=== PATIENT | female | born 1955 | race Caucasian/White ===

== ENCOUNTER 2025-08-07 17:56 | Emergency (ER) | payer OTHER, MEDICARE, BC, SELFPAY ==
--- NOTE | ~2025-08-07 | CT_ITS ---
EXAMINATION: CT brain wo con DATE: 08/07/2025 18:51 INDICATION: Pulsating headache TECHNIQUE: Computed tomography (CT) of the head was performed without intravenous contrast. Sagittal and coronal reconstructions were performed. The mA was adjusted according to patient size. Iterative reconstruction technique was employed. The dose-length product was 605.33 mGy-cm. COMPARISON: None FINDINGS: No acute intracranial hemorrhage, acute infarction or abnormal extra axial fluid collection. Ventricles are normal and symmetric. No mass/mass effect. Changes of bilateral intraocular lens replacement. The orbits, paranasal sinuses and mastoid air cells are normal. IMPRESSION: 1. No acute intracranial process. Reviewed, dictated and finalized at location A. ENGINEER
[2025-08-07 17:55] VITALS: BP 178/96; PULSE 68; RESP 16; TEMP 36.4; O2SAT 100
--- OUTSIDE RECORDS SUMMARY | 2025-08-07 18:25 | XMS_ITS | Clinical Summary ---
Author Organization 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 Active famotidine (PEPCID) 10 mg tablet Take 10 mg by mouth 2 times daily. Active venlafaxine (EFFEXOR) 75 mg tablet Take 75 mg by mouth 3 times daily. Active Active Problems No known active problems Immunizations Immunization Administration Dates Next Due ([employer])(12 YR UP) COVID-19 VACCINE - EMERGENCY USE AUTHORIZATION, MRNA, [id number](PF) 30 MCG/0.3 ML IM SUSP 12/01/2020,11/03/2020 Social History Tobacco Use Types Packs/Day Years Used Date Smoking Tobacco: Former Cigarettes 0 Q uit: 1985 Smokeless Tobacco: Never Alcohol Use Standard Drinks/Week Comments Not Currently 0 (1 standard drink = 0.6 oz pur e alcohol) Comments No Sex and Gender Information Value Date Recorded Sex Assigned at Not on file Legal Sex Female 11:55 AM CDT Gender Identity Not on file Sexual Orientation Not on file Last Filed Vital Signs Vital Sign Reading Time Taken Comments Blood Pressure 130/81 10/20/2020 3:29 PM 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 Pulse 70 05/23/2017 2:50 PM CDT Temperature 36.8 C (98.2 F) 10/20/2020 3:29 PM 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 Respiratory Rate 20 10/20/2020 3:29 PM 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 Oxygen Saturation 100% 10/20/2020 3:29 PM 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 Inhaled Oxygen Concentration - - Weight 76.2 kg (168 lb) 10/20/2020 3:29 PM 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 Height 160 cm (5' 3) 10/20/2020 3:29 PM 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 Body Mass Index 29.76 10/20/2020 3:29 PM 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 Plan of Treatment Health Maintenance Due Date Last Done Comments BREAST CANCER SCREENING 1995 COLORECTAL SCREENING 11/21/2000 Colorectal Cancer Screening 11/21/2000 FIT-DNA Q 3 years 11/21/2000 FIT/FOBT Q 1 year 11/21/2000 Flex Sig/CT Colonography Q 5 years 11/21/2000 PNEUMOCOCCAL VACCINE 50+ YEA RS (1 of 1 - PCV) 11/21/2005 ZOSTER VACCINE (1 of 2) 11/21/2005 DTAP/TDAP/TD VACCINES (2 - T d or Tdap) 08/02/2020 08/02/2010, 01/20/2003 OSTEOPOROSIS SCREENING 11/21/2020 INFLUENZA VACCINE (#1) 2025 7, 06/07/2016, 07/14/2014, Additional history exists COVID-19 Vaccine (3 - 2024-2 6 season) 2025 12/01/2020, 11/03/2020 RSV VACCINE (60+ or ) (1 - 1-dose 75+ series) 11/21/[address] [place] [address] [address] ad[employer] PPO Member Subscriber Plan / Payer (Ef fective 2020-Present) Name:Margret Millan Relation to Subscriber:Self Name:Margret Millan Payer ID:[id number] (NAIC) Type:3Touch Address: [address] [facility] [id number] [place] [phone] Care Teams Electrical Prospecting Operator Relationship Specialty Start Date End Date Carlos Driscoll MD [address] [place] [address] PCP - General Emergency Medicine 11/12/20
--- OUTSIDE RECORDS SUMMARY | 2025-08-07 18:25 | XMS_ITS | Patient Health Record ---
Author Organization [facility] [employer] [facility] Address [address] [place] [address] [place] [address] Care Team Providers Care Apprentice Technician Name Role Phone David Jones Unavailable [phone] Reason For Referral No Information Plan Of Treatment No Information
--- OUTSIDE RECORDS SUMMARY | 2025-08-07 18:25 | XMS_ITS | Data Portability ---
Author Organization [place] - [facility] ark, [facility] Address [address] [facility] [address] [place] [address] Care Team Providers Care Pairer Substandard Name Role Phone JULIANA PFEIFFER Primary Care Provider [phone] Assessment No assessment recorded. Plan of Treatment Reminders Order Date Submit Date Provider Last Modified By Organization Details Last Modified Time Details Appointments None recorded. Lab None recorded. Referral None recorded. Procedures None recorded. Surgeries total hip arthroplast y (SURG) [email or web address] [facility] ([facility]), [address] [place], [address], 3 09:16:50 Imaging XR, hip, unilateral 2022 [address]23 [email or web address] [facility], [address], [address], 3 10:40:05 XR, hip, unilateral 2022 023 [email or web address] [facility], [address], [address], 3 17:47:02 XR, hip, bilateral 2018 019 [email or web address] Orthopaedic [facility], [address] [address], [place], [address], 9 13:02:08 XR, lumbar spine 2018 [email or web address], [address], [place], [address], 9 13:01:57 XR, foot 2018 [email or web address], [address], [place], [address], 9 13:01:45 Medication Orders None recorded. Patient TargetsNo targets recorded. Patient Instructions Encounter Date Encounter Id Patient Instructions Last Modified By Organization Details Last Modified Time 05/14/2019 [id number] Imagin05-14-19 XR L spine with severe deg spondylosis/scolio sis 05-14-19 XR hudson hips with R hip mod joint space narrowing 05-14-19 XR L foot with no osseous abn other than slight cavus forefoot Lab: Consults Assessment: -Lumbar spondylosis/scolio sis -R hip mild to mod arthritis -R foot 5th MT cuboid chronic strain Plan: -MRI L spine -f/u post MRI -Discussed epidural steroid injections -R foot custom molded arch supports Ortho hx: LBP, lumbar spondylosis/scolio sis R foot pain, 5th MT cuboid chronic strain 05-14-19 Custom arch supports Notes: rajiv East Not available 05/14/2019 15:06:49 05/21/2019 [id number] Imagin05-14-19 XR L spine with severe deg spondylosis/scolio sis 05-14-19 XR hudson hips with R hip mod joint space narrowing 05-14-19 XR L foot with no osseous abn other than slight cavus forefoot 05-20-19 MRI L spine with L34 Disc herniation with extrusion to R lateral recess and L4 nerve impingement, L45 stenosis, diffuse deg spondylosis Lab: Consults Assessment: -Lumbar spondylosis/scolio sis -Lumbar L34 disc extrusion with L4 R sided radiculopathy -L34 and L45 stenosis Plan: -Referral to spine surgeon Dr Damon -f/u prn -Prednisone 10mg po QD for 5 days PMH: Lumbar spondylosis/scolio sis R 5th MT cuboid chronic strain R hip mild arthritis PSH: Notes: 05-14-19 Custom arch supports 05-21-19 Prednisone dose pack rajiv East Not available 05/21/2019 14:40:24 12/05/2022 [id number] Reviewed and discussed x-ray findings of right hip which does reveal severe osteoarthritis noted throughout. She has tried numerous injections as well as physical therapy with no improvement noted in her hip. She reports she is tired and with pain and limitations she would like to have it surgically corrected. We will plan for right total hip replacement at this time. Reviewed and discussed findings with Dr. Rodriguez who agrees with plan. We will plan for right total hip replacement at this time. The patient has been informed of the risks to include infection, bleeding, nerve damage, , need for further surgery, worsening of symptoms, recurrence of problem, hardware failure or migration, or fracture. Alternatives such as no interventions, injections, therapy, bracing, and other surgical options have all been discussed. The patient understands the risks and alternatives, and wishes to proceed with the planned procedure. Will follow up in clinic post operatively. [email or web address] Not available 12/06/2022 17:50:11 01/12/2023 [id number] Margret is doing very well with her right hip. She does have a small fluid collection under it which is somewhat expected. She is very active already. She will do warm compresses on that seroma several times a day see if we get it to dissolve. If she has any redness or drainage she is to call right away. She will also take a baby aspirin twice a day. [email or web address] Not available 01/12/2023 11:45:01 02/02/2023 [id number] Margret is doing very well with her right hip. She is just over a month out and not walking with a limp or any assistive device. The seroma is completely disappeared after she got treatment at a day spa with [facility]. I am very impressed with this. I will see her back in 6 weeks. [email or web address] Not available 02/02/2023 10:41:16 Reason for Referral None Reported. Results Created Date Observation Date Name Description Value Unit Range Abnormal Flag Note LastModifiedBy Organization Detail LastModifiedTime 12/23/19 23 12/22/2022 CBC W DIFF basophil count percentage of leukocytes 0.8 % 0-2 normal Not Available [address] [address] [place], [address], 12/22/2022 12:47:02 12/23/19 23 12/22/2022 CBC W DIFF blood eosinophils count (number/volu me) 0.10 10x3/ uL 1.56-6 .13 low Not Available [address] [address] [place], [address], 12/22/2022 12:47:02 12/23/19 23 12/22/2022 CBC W DIFF automated blood eosinophil count percentage of total leukocytes 3.0 % 0-7 normal Not Available [address] [address] [place], [address], 12/22/2022 12:47:02 12/23/19 23 12/22/2022 CBC W DIFF automated blood hematocrit (volume fraction) 38.9 % 36.0-4 8.0 normal Not Available [address] [address] [place], [address], 12/22/2022 12:47:02 12/23/19 23 12/22/2022 CBC W DIFF whole blood hemoglobin measurement (mass/volume ) 13.1 g/dL 12-16 normal Not Available [address] [address] [place], [address], 12/22/2022 12:47:02 12/23/19 23 12/22/2022 CBC W DIFF automated lymphocyte count percentage of total leukocytes 38.5 % 15-50 normal Not Available [address] [address] [place], [address], 12/22/2022 12:47:02 12/23/19 23 12/22/2022 CBC W DIFF automated erythrocyte mean corpuscular hemoglobin concentratio n (MCHC)elvira 33.7 pg 26.0-3 4.0 normal Not Available [address] [address] [place], [address], 12/22/2022 12:47:02 12/23/19 23 12/22/2022 CBC W DIFF automated erythrocyte mean corpuscular hemoglobin concentratio n (MCHC)elvira 33.8 g/dL 31.0-3 7.0 normal Not Available [facility] [address] [place], [address], 12/22/2022 12:47:02 12/23/19 23 12/22/2022 CBC W DIFF determinatio n of erythrocyte mean corpuscular volume (MCV) 99.7 fL 80.0-1 00.0 normal Not Available [facility] [address] [place], [address], 12/22/2022 12:47:02 12/23/19 23 12/22/2022 CBC W DIFF automated blood monocyte count percentage of total leukocytes 13.1 % 2-11 high Not Available [address] [address] [place], [address], 12/22/2022 12:47:02 12/23/19 23 12/22/2022 CBC W DIFF automated blood platelet mean volume measurement 10.6 fL 7.4-10 .4 high Not Available [address] [address] [place], [address], 12/22/2022 12:47:02 12/23/19 23 12/22/2022 CBC W DIFF blood neutrophils count (number/volu me) 1.50 10x3/ uL 1.56-6 .13 low Not Available [address] [address] [place], [address], 12/22/2022 12:47:02 12/23/19 23 12/22/2022 CBC W DIFF automated blood neutrophil count percentage of total leukocytes 44.6 % 40-80 normal Not Available [address] [address] [place], [address], 12/22/2022 12:47:02 12/23/19 23 12/22/2022 CBC W DIFF blood platelets count (number/volu me) 180 10x3/ uL 130-40 0 normal Not Available [facility] [address] [place], [address], 12/22/2022 12:47:02 12/23/19 23 12/22/2022 CBC W DIFF blood erythrocytes count (number/volu me) 3.90 10x6/ uL 4.00-5 .40 low Not Available [facility] [address] [place], [address], 12/22/2022 12:47:02 12/23/19 23 12/22/2022 CBC W DIFF automated erythrocyte distribution width ratio 13.5 % 11.5-1 4.5 normal Not Available [facility] [address] [place], [address], 12/22/2022 12:47:02 12/23/19 23 12/22/2022 CBC W DIFF automated white blood cell count 3.3 10x3/ uL 4.8-10 .8 low Not Available [facility] [address] [place], [address], 12/22/2022 12:47:02 12/23/19 23 12/22/2022 BASIC METAB OLIC PROFI LE serum or plasma anion gap determinatio n (moles/volum e) 13.20 mmol/ L 8-16 normal Not Available [facility] [address] [place], [address], 12/22/2022 12:49:06 12/23/19 23 12/22/2022 BASIC METAB OLIC PROFI LE serum or plasma urea nitrogen/cre atinine mass ratio 26 ratio 10-20 high Not Available [facility] [address] [place], [address], 12/22/2022 12:49:06 12/23/19 23 12/22/2022 BASIC METAB OLIC PROFI LE serum or plasma urea nitrogen measurement (mass/volume ) 26 mg/dL 7-18 high Not Available [facility] [address] [place], [place], [address], 12/22/2022 12:49:06 12/23/19 23 12/22/2022 BASIC METAB OLIC PROFI LE calcium measurement (mass/volume ) 9.1 mg/dL 8.5-10 .1 normal Not Available [facility] [address] [place], [address], 12/22/2022 12:49:06 12/23/19 23 12/22/2022 BASIC METAB OLIC PROFI LE chloride ser/plas 104 mmol/ L 98-107 normal Not Available [facility] [address] [place] [place], [place], [address], 12/22/2022 12:49:06 12/23/19 23 12/22/2022 BASIC METAB OLIC PROFI LE serum or plasma carbon dioxide measurement (moles/volum e) 27.2 mmol/ L 21.0-3 2.0 normal Not Available [facility] [address] [place], [place], [address], 12/22/2022 12:49:06 12/23/19 23 12/22/2022 BASIC METAB OLIC PROFI LE calculated serum or plasma osmolality determinatio n (osmol/kg) 284 mOsm/ kg 275-30 0 normal Not Available [facility] [address], [place], [address], 12/22/2022 12:49:06 12/23/19 23 12/22/2022 BASIC METAB OLIC PROFI LE serum or plasma creatinine measurement (mass/volume ) 1.0 mg/dL 0.6-1. 3 normal Not Available [facility] [address] [place], [place], [address], 12/22/2022 12:49:06 12/23/19 23 12/22/2022 BASIC METAB OLIC PROFI LE glomerular filtration rate (GFR) estimation/1 .73 sq M using serum, plasm 71 mL/mi n 90-120 low Not Available [facility] [address] [place] [place], [place], [address], 12/22/2022 12:49:06 12/23/19 23 12/22/2022 BASIC METAB OLIC PROFI LE eGFR non- 58 mL/mi n 90-120 low Not Available [facility] [address] [place], [place], [address], 12/22/2022 12:49:06 12/23/19 23 12/22/2022 BASIC METAB OLIC PROFI LE serum or plasma glucose measurement (mass/volume ) 89 mg/dL 74-106 normal Not Available [facility] [address] [place], [place], [address], 12/22/2022 12:49:06 12/23/19 23 12/22/2022 BASIC METAB OLIC PROFI LE potassium ser/plas 3.4 mmol/ L 3.5-5. 1 low Not Available [facility] [address] [place], [place], [address], 12/22/2022 12:49:06 12/23/19 23 12/22/2022 BASIC METAB OLIC PROFI LE serum or plasma sodium measurement (moles/volum e) 141 mmol/ L 136-14 5 normal Not Available [facility] [address] [place], [place], [address], 12/22/2022 12:49:06 12/23/19 23 12/22/2022 PT WITH INR INR in platelet poor plasma by coagulation assay 0.93 0.85-1 .17 normal Not Available [facility] [address] [place], [address], 12/22/2022 13:33:37 12/23/19 12/22/2022 PT WITH INR prothrombin time (PT) in platelet poor plasma 12.2 secon ds 11.6-1 5.0 normal Not Available [address] [address] [place], [address], 12/22/2022 13:33:37 12/23/19 23 12/22/2022 ACTIV ATED PARTI AL THROM BOPLA STIN TIME (APTT ) IN PLATE LET POOR PLASM A BY COAGU LATIO N ASSAY activated partial thromboplast in time (APTT) in platelet poor plasma by 32.4 secon ds 22.8-3 9.4 normal Not Available [address] [address] [place], [address], 12/22/2022 13:33:38 12/23/19 23 12/22/2022 URINA LYSIS microscopic exam needed? YES Not Available [address], [address], 12/22/2022 13:33:46 12/23/19 23 12/22/2022 URINA LYSIS UA strip exp 2023 Not Available [address], [address], 12/22/2022 13:33:46 12/23/19 23 12/22/2022 URINA LYSIS UA strip lot # [id number] Not Available [address] [address] [place], [address], 12/22/2022 13:33:46 12/23/19 23 12/22/2022 URINA LYSIS urine clarity CLOUDY CLOUDY clear abnormal Not Available [address] [address] [place], [address], 12/22/2022 13:33:46 12/23/19 23 12/22/2022 URINA LYSIS urine bacteria detection by automated method FEW FEW hpf <mod Not Available [address] [place], [address], 12/22/2022 13:33:46 12/23/19 23 12/22/2022 URINA LYSIS urine bilirubin detection by automated test strip NEGATI VE NEGATI VE negati ve Not Available [address] [address] [place], [address], 12/22/2022 13:33:46 12/23/19 23 12/22/2022 URINA LYSIS urine blood detection NEGATI VE NEGATI VE < 1+ Not Available [address] [address] [place], [address], 12/22/2022 13:33:46 12/23/19 23 12/22/2022 URINA LYSIS color ur LIGHT- YELLOW LIGHT- YELLOW yellow Not Available [address] [place], [address], 12/22/2022 13:33:46 12/23/19 23 12/22/2022 URINA LYSIS urine glucose measurement by test strip NORMAL mg/dL < 70 Not Available [address] [address] [place], [address], 12/22/2022 13:33:46 12/23/19 23 12/22/2022 URINA LYSIS automated hyaline casts count in urine sediment (number/area ) 4 lpf 0-1 high Not Available [address] [address] [place], [address], 12/22/2022 13:33:46 12/23/19 23 12/22/2022 URINA LYSIS urine ketone detection by automated test strip NEGATI VE NEGATI VE mg/dL < 1+ Not Available [address] [address] [place], [address], 12/22/2022 13:33:46 12/23/19 23 12/22/2022 URINA LYSIS leukocyte esterase ur dipstick 2+ 2+ < 1+ abnormal Not Available [facility] [address] [place], [address], 12/22/2022 13:33:46 12/23/19 23 12/22/2022 URINA LYSIS urine mucus detection by automated method RARE RARE lpf <mod Not Available [facility] [address] [place], [address], 12/22/2022 13:33:46 12/23/19 23 12/22/2022 URINA LYSIS nitrite ur dipstick NEGATI VE NEGATI VE negati ve Not Available [address] [address] [place], [address], 12/22/2022 13:33:46 12/23/19 23 12/22/2022 URINA LYSIS pH ur 5.0 5.0-8. 0 Not Available [address] [address] [place], [address], 12/22/2022 13:33:46 12/23/19 23 12/22/2022 URINA LYSIS urine protein detection by automated test strip NEGATI VE NEGATI VE mg/dL < 1+ Not Available [facility] [address] [place], [place], [address], 12/22/2022 13:33:46 12/23/19 23 12/22/2022 URINA LYSIS automated urine red blood cell count 1 hpf 0-3 Not Available [facility] [address], [place], [address], 12/22/2022 13:33:46 12/23/19 23 12/22/2022 URINA LYSIS automated urine squamous epithelial cell count (number/volu me) 7 hpf 0-4 high Not Available [address] [address] [place], [address], 12/22/2022 13:33:46 12/23/19 23 12/22/2022 URINA LYSIS urine specific gravity measurement by refractometr y 1.007 1.003- 1.[address] [facility] [address] [place], [address], 12/22/2022 13:33:46 12/23/19 23 12/22/2022 URINA LYSIS urine urobilinogen measurement NORMAL NORMAL mg/dL < 2 Not Available [facility] [address] [place], [address], 12/22/2022 13:33:46 12/23/19 23 12/22/2022 URINA LYSIS automated urine white blood cell count 9 hpf 0-4 high Not Available [facility] [address] [place], [address], 12/22/2022 13:33:46 12/29/19 23 12/28/2022 CAPIL SENIA WHOLE BLOOD GLUCO SE MEASU REMEN T BY GLUCO METER (MASS /VOLU ME) capillary whole blood glucose measurement by glucometer (mass/volume ) 99 mg/dL 70-110 normal Not Available [facility] [address] [place], [address], 12/28/2022 09:15:00 12/31/1912/30/2022 SURGI CARLOS surgical ----- ----- ----- ----- ----- ----- ----- ----- ----- ----- ----- ----- ----- ----- ----- ----- ----- ----- -- RUN DATE: 12/30 [address] SAL[address]AN[address] NMBridget LEONEL E PAGE 1 RUN TIME: 1962 Speci men Inqui ry RUN USER: INTER FACE ----- ----- ----- ----- ----- ----- ----- ----- ----- ----- ----- ----- ----- ----- ----- ----- ----- ----- -- PATIE NT: Hesham YOUNG [id number] LOC: D.MS Quesada #: [id number] AGE/S X: 67/F ROOM: [facility] 2 RE12/[address]: RAM[address]RE[address], DO : 11/21 BED: A DIS: STATU S: ADM IN TLOC: ----- ----- ----- ----- ----- ----- ----- ----- ----- ----- ----- ----- ----- ----- ----- ----- ----- ----- -- SPEC #: [id number] RECD: 12/28 115 STATU S: SOUT REQ #: [id number] GRANT: 12/28 DR: RAMÍREZ PETTY RD, DO ENTER ED: 12/28 116 SP TYPE: SURGI CARLOS OTHR DR: RAMÍREZ ASH MD, FRED MD PATHO LOGY SERVI [facility] ORDER ED: SENT TO [facility] COPIE S TO: RAM[address]RE[address], DO [address] [facility] [place] [address] [phone] RAMÍREZ ASH MD [facility] [place] [phone] ARTIE ROCK MD [address] [facility] [place] [address] [phone] PATHO LOGY SERVI [facility] LAB PROCE DURES : SENT TO [facility] (12/19) TISSU ES: BONE CLINI CARLOS DATA OSTEO ARTHR ITIS, RIGHT HIP DIAGN OSIS Bone, femor al head, right , total hip arthr oplas ty: - Consi stent with osteo arthr itis DISCL AIMER Techn ical compo nent prepa red at: [facility] logy [facility] atory , [address] [place] [address] CLIA# [id number] , [phone] COURTNEY NUKAYLYN ON NEXT PAGE ----- ----- ----- ----- ----- ----- ----- ----- ----- ----- ----- ----- ----- ----- ----- ----- ----- ----- -- RUN DATE: 12/30 Rony SALAMANCA NMI LEONEL E PAGE 2 RUN TIME: 1624 Speci men Inqui ry RUN USER: INTER FACE ----- ----- ----- ----- ----- ----- ----- ----- ----- ----- ----- ----- ----- ----- ----- ----- ----- ----- -- SPEC #: JONATHAN [id number] GARETH TAY: Hesham YOUNG #[id number] (Cont inued ) ----- ----- ----- ----- ----- ----- ----- ----- ----- ----- ----- ----- ----- ----- ----- ----- ----- ----- -- GROSS EXAMBridget nunez in forma miriam label ed with the gareth tay's name, medic al recor d duyen meier and ramesh shirley as right femor al head consi sts of an artic ular porti on of femor al head measu ring 5.5 x 5 x 4.8 cm. The artic ular surfa ce shows an irreg ular merrill-g ray area of eburn ation . The speci men is selec tivel y submi tted into 1 casse tte follo wing decal cific ation . KK MICRO SCOPI C EXAMI NATIO N Perfo rmed. SPECI MEN RIGHT FEMOR AL HEAD ----- ----- ----- ----- ----- ----- ----- ----- ----- ----- ----- ----- ----- ----- ----- ----- ----- ----- -- CHAPIN Freeman MD 12/30 1624 ----- ----- ----- ----- ----- ----- ----- ----- ----- ----- ----- ----- ----- ----- ----- ----- ----- ----- -- END OF REPOR T Not Available [facility] [address] [place], [address], 12/30/2022 17:24:55 01/03/20 23 12/28/2022 CAPIL SENIA WHOLE BLOOD GLUCO SE MEASU REMEN T BY GLUCO METER (MASS /VOLU ME) capillary whole blood glucose measurement by glucometer (mass/volume ) 150 mg/dL 70-110 high Not Available [facility] [address] [place], [address], 01/02/2023 10:59:31 12/23/19 23 12/22/2022 METHI CILLI N RESIS TANT STAPH YLOCO CCUS AUREU S (MRSA ) SCREE MAREN CULTU RE culture, MRSA screen (swab) MNOSA Negat patric for MRSA and MSSA Not Available [facility] [address] [place], [address], 12/24/2022 09:34:50 05/21/2005/20/2019 MRI, lumba r spine , w/o contr ast No observ ation record ed. [facility] ([facility] [address], [place], [address], 05/21/2019 14:48:59 05/24/2005/20/2019 MRI, lumba r spine , w/o contr ast DIAGNO STIC IMAGIN G REPORT [facility] l - Medica l Imagin g Depart [address] [facility] PHONE #: FAX #: ------ ------ ------ ------ ------ ------ ------ ------ ------ ------ ------ ------ ------ - Name: VICENTE MCCALLUM Loc: D.MRI Radiol ogy No: : 1955 Age: 63 Sex: F Status : DEP CLI Unit No: [id number] Phys: MICA ROBBINS Acct: [id number] Reason For Exam: Exam Date: 2018 ------ ------ ------ ------ ------ ------ ------ ------ ------ ------ ------ ------ ------ - EXAMS: Diagno sis: CPT: [id number] MR Lumbar Spine Withou t CHRONI C LBP [id number] MRI Lumbar Spine withou t Contra st INDICA TION: A 63-yea r-old female with chroni c low back pain and bilate ral hip pain for 10 years. COMPAR DIPESH: None availa ble. TECHNI QUE: Multip lanar, multis equenc e imagin g of the lumbar spine withou t intrav enous contra st admini strati on. FINDIN GS: There is levocu rvatur e center ed at L4. No signif icant listhe sis is seen. Verteb ral body height s are mainta ined. There are Modic type 2 endpla te signal change s seen at the L2-L3 and to a lesser extent L3-L4. There are probab le mixed Modic 1 and 2 endpla te signal change s seen at L1-L2. The conus termin ates at L1. T12-L1 : There is disc desicc ation with loss of disc height . There is circum ferent ial disc bulge with superi mposed right parace ntral disc protru patti. This result s in mild spinal canal stenos is. No neural forami nal stenos is is seen. L1-L2: There is disc desicc ation with loss of disc height . There is small circum ferent ial disc bulge, which is slight ly asymme tric to the left. This result s in mild spinal canal stenos is. There is mild left forami nal stenos is. L2-L3: There is disc desicc ation with loss of disc height . There is small circum ferent ial disc bulge result ing in mild spinal canal stenos is. There is mild stenos is of the left latera l recess withou t imping ement or java lead ior displa cement of the descen ding left L3 nerve root. There is mild left forami nal stenos is. L3-L4: There is disc desicc ation with loss of disc height . There is circum ferent ial disc bulge with right subart icular disc extrus ion which migrat es inferi chuck. There is associ ated modera te spinal canal stenos is with stenos is of the right latera l recess and possib le imping ement of the descen ding right L4 nerve root. There is modera te right and mild left forami nal stenos is. There is facet arthro sis with mild thicke maren of ligame ntum flavum . L4-L5: There is disc desicc ation with loss of disc height . There is circum ferent ial disc bulge, which in combin ation with facet arthro sis PAGE 1 Signed Report (COURTNEY NUED) DIAGNO STIC IMAGIN G REPORT [facility] Zach hesham [address] [facility] PHONE #: [phone] FAX #: ------ ------ ------ ------ ------ ------ ------ ------ ------ ------ ------ ------ ------ - Name: VICENTE MCCALLUM WENDYRoyal Loc: D.MRI Radiol ogy No: : 1955 Age: 63 Sex: F Status : DEP CLI Unit No: [id number] Phys: MICA ROBBINS Acct: [id number] Reason For Exam: omment : Exam Date: 2018 ------ ------ ------ ------ ------ ------ ------ ------ ------ ------ ------ ------ ------ - EXAMS: Diagno sis: CPT: [id number] MR Lumbar Spine Withou t CHRONI C LBP [id number] and thicke maren of the ligame ntum flavum result in mild-m oderat e spinal canal stenos is. There is slight stenos is of both latera l recess es withou t clear imping ement. [employer] ior displa cement of the bilate ral descen ding L5 nerve roots. There is mild-m oderat e right and mild left forami nal stenos is. L5-S1: There is disc desicc ation with loss of disc height . There is small circum ferent ial disc bulge result ing in no signif icant spinal canal stenos is. There is mild bilate ral forami nal stenos is. Mild facet arthro sis is presen t. Parasp inal soft tissue s are grossl y unrema rkable . IMPRES PATTI: 1. At L3-L4, there is circum ferent ial disc bulge with superi mposed right subart icular disc extrus ion which migrat es inferi chuck into the right latera l recess . This result s in modera te spinal canal stenos is with stenos is of the right latera l recess and probab le imping ement of the descen ding right L4 nerve root. There is modera te right and mild left forami nal stenos is at this level. 2. At L4-L5, there is mild-m oderat e spinal canal stenos is with mild-m oderat e right and mild left forami nal stenos is. 3. Additi onal lesser multil evel degene rative change s are detail ed above. Dictat ion ID: [id number] Electr onical ly Signed by DONI THOMAS on 2018 at 2042 Report ed by: DONI THOMAS MD Signed by: Zainab THOMAS CC: MICA RENEE MD; No PCP Dictat ed Date/T hunter: 2018 (1535) Techno logist : TY HAGEN Transc ribed Date/T hunter: 2018 (1635) Transc riptio nist: TRANSI NT Printe d Date/T hunter: 2018 (2042) BATCH NO: N/A PAGE 2 Signed Report [email or web address] [place] [address] ([facility]) [address] [place], [address], 05/27/2019 10:27:28 12/07/19 23 XR, hip, unila teral No observ ation record ed. [facility] [address] [facility] [address], [place], [address], 12/06/2022 17:46:51 12/29/19 23 12/28/2022 XR, hip, unila teral , 1 view DIAGNO STIC IMAGIN G REPORT [facility] Medica l - Medica l Imagin g Depart - [address] [facility] PHONE #: [phone] FAX #: ------ ------ ------ ------ ------ ------ ------ ------ ------ ------ ------ ------ ------ - Name: VICENTE MCCALLUM [facility] Rad[place] ogy No: : 1955 Age: 67 Sex: F Status : ADM IN Unit No: [id number] Phys: CLEO DEVINE - CLEO Terry,MARYSOL Terry Acct: [id number] Reason For Exam: OR Exam Date: 2022 ------ ------ ------ ------ ------ ------ ------ ------ ------ ------ ------ ------ ------ - EXAMS: Diagno sis: CPT: [id number] XR Right Hip 1 View RIGHT TOTAL HIP,OA 27965 Exam: - XR Right Hip 1 View Date/T hunter of Exam: 023 10:50 AM CDT Reason For Exam: RIGHT TOTAL HIP,OA . COMPAR DIPESH: None FINDIN GS: 2 AP fluoro scopic images of the right hip are submit ozzy. These demons trate right hip arthro plasty change s which appear well aligne d. Total fluoro scopic time is 49.2 second s. IMPRES PATTI: Intrao perati ve fluoro scopic images demons tratin g right hip arthro plasty change s. Electr onical ly Signed by MD DONI THOMAS on 2022 at 1055 Report ed and signed by: DONI THOMAS MD CC: MARYSOL RANDHAWA, ; MARYSOL FONSECA MD Dictat ed Date/T hunter: 2022 (1054) Techno logist : RADHA PHIPPS Transc ribed Date/T hunter: 2022 (1054) Transc riptio nist: [email or web address] Printe d Date/T hunter: 2022 (1057) BATCH NO: N/A PAGE 1 Signed Report [email or web address] [facility] (Imaging) [address] [place], [address], 12/28/2022 12:03:27 12/29/19 23 12/28/2022 XR, hip, unila teral No observ ation record ed. [address] [place], [address], 12/28/2022 14:05:14 01/03/20 23 01/02/2023 US, jen x, irma s, extre mity, unila teral DIAGNO ST[facility] [address] [facility] PHONE #: [phone] FAX #: ------ ------ ------ ------ ------ ------ ------ ------ ------ ------ ------ ------ ------ - Name: VICENTE MCCALLUM Loc: D.US Radiol ogy No: : 1955 Age: 67 Sex: F Status : REG CLI Unit No: [id number] Phys: REGINA GONZALEZ Acct: [id number] Reason For Exam: Exam Date: 2022 ------ ------ ------ ------ ------ ------ ------ ------ ------ ------ ------ ------ ------ - EXAMS: Diagno sis: CPT: [id number] US Right Venous Dopple r SWELLI NG OF RT LOWER LEG 36873 Exam: - US Right Venous Dopple r Leg Date/T hunter of Exam: 023 1:56 PM CDT Reason For Exam: SWELLI NG OF RT LOWER LEG . TECHNI QUE: Real-t hunter greysc kaylah ultras ound along with color and spectr al Dopple r perfor med to assess the deep venous system of the right lower extrem ity from the common femora l vein to the calf veins. Compar dipesh: None. FINDIN GS: The common femora l, proxim al greate r saphen ous, femora l, deep femora l, poplit eal, and java lead ior tibial veins demons trate normal phasic flow, compre ssion, and augmen tation . No defini te fillin g defect s noted. IMPRES PATTI: No sonogr aphic eviden ce of DVT. Electr onical ly Signed by AYESHA MYLES on 2022 at 1426 Report ed and signed by: VIJAY MYLES MD CC: REGINA BOWER [employer] ; MARYSOL FONSECA MD Dictat ed Date/T hunter: 2022 (1424) Techno logist : PATRIA VITAL,FAITH DIMARI E Transc ribed Date/T hunter: 2022 (1424) Transc riptio nist: [email or web address] Printe d Date/T hunter: 2022 (1428) BATCH NO: N/A PAGE 1 Signed Report [email or web address] [facility] (Imaging) [address], [place], [address], 01/02/2023 15:55:08 01/03/20 23 01/02/2023 US, duple x, venou s, lower extre mity No observ ation record ed. [email or web address] [facility] [address] [place], [address], 01/03/2023 09:06:38 02/03/20 23 XR, hip, unila teral No observ ation record ed. [facility] [address] [address], [place], [address], 02/02/2023 10:40:02 Result Notes Documentation Provider Name and Address Organization Details Recorded Time Mri, Lumbar Spine, W/o Contrast : DIAGNOSTIC IMAGING REPORT [facility] Medical Imaging Depart - [address] [facility] PHONE #: [phone] FAX #: [phone] - Name: MARGRET KNIGHT Loc: DSonyaMRI Radiology No: : 1955 Age: 63 Sex: F Status: DEP I Unit No: [id number] Phys: MICA BIGGS Acct: [id number] Reason For Exam: Exam Date: 05/20/2019 - EXAMS: Diagnosis: CPT: [id number] MR Lumbar Spine Without CHRONIC LBP 15910 MRI Lumbar Spine without Contrast INDICATION: A 63-year-old female with chronic low back pain and bilateral hip pain for 10 years. COMPARISON: None available. TECHNIQUE: Multiplanar, multisequence imaging of the lumbar spine without intravenous contrast administration. FINDINGS: There is levocurvature centered at L4. No significant listhesis is seen. Vertebral body heights are maintained. There are Modic type 2 endplate signal changes seen at the L2-L3 and to a lesser extent L3-L4. There are probable mixed Modic 1 and 2 endplate signal changes seen at L1-L2. The conus terminates at L1. T12-L1: There is disc desiccation with loss of disc height. There is circumferential disc bulge with superimposed right paracentral disc protrusion. This results in mild spinal canal stenosis. No neural foraminal stenosis is seen. L1-L2: There is disc desiccation with loss of disc height. There is small circumferential disc bulge, which is slightly asymmetric to the left. This results in mild spinal canal stenosis. There is mild left foraminal stenosis. L2-L3: There is disc desiccation with loss of disc height. There is small circumferential disc bulge resulting in mild spinal canal stenosis. There is mild stenosis of the left lateral recess without impingement or posterior displacement of the descending left L3 nerve root. There is mild left foraminal stenosis. L3-L4: There is disc desiccation with loss of disc height. There is circumferential disc bulge with right subarticular disc extrusion which migrates inferiorly. There is associated moderate spinal canal stenosis with stenosis of the right lateral recess and possible impingement of the descending right L4 nerve root. There is moderate right and mild left foraminal stenosis. There is facet arthrosis with mild thickening of ligamentum flavum. L4-L5: There is disc desiccation with loss of disc height. There is circumferential disc bulge, which in combination with facet arthrosis PAGE 1 Signed Report (CONTINUED) DIAGNOSTIC IMAGING REPORT [facility] Medical Imaging [facility] - [address] [place] [address] PHONE #: [phone] FAX #: [phone] - Name: MARGRET KNIGHT Loc: D.MRI Radiology No: : 1955 Age: 63 Sex: F Status: DEP [facility] Unit No: [id number] Phys: MICA BIGGS Acct: [id number] Reason For Exam: omment: Exam Date: 05/20/2019 - EXAMS: Diagnosis: CPT: [id number] MR Lumbar Spine Without CHRONIC LBP 96662 and thickening of the ligamentum flavum result in mild-moderate spinal canal stenosis. There is slight stenosis of both lateral recesses without clear impingement. Posterior displacement of the bilateral descending L5 nerve roots. There is mild-moderate right and mild left foraminal stenosis. L5-S1: There is disc desiccation with loss of disc height. There is small circumferential disc bulge resulting in no significant spinal canal stenosis. There is mild bilateral foraminal stenosis. Mild facet arthrosis is present. Paraspinal soft tissues are grossly unremarkable. IMPRESSION: 1. At L3-L4, there is circumferential disc bulge with superimposed right subarticular disc extrusion which migrates inferiorly into the right lateral recess. This results in moderate spinal canal stenosis with stenosis of the right lateral recess and probable impingement of the descending right L4 nerve root. There is moderate right and mild left foraminal stenosis at this level. 2. At L4-L5, there is mild-moderate spinal canal stenosis with mild-moderate right and mild left foraminal stenosis. 3. Additional lesser multilevel degenerative changes are detailed above. Dictation ID: [id number] at 2042 Reported by: DONI THOMAS MD Signed by: DONI THOMAS CC: MICA ANDREWS MD; No PCP Dictated Date/Time: 05/20/2019 (1535) Technologist: TY HAGEN Transcribed Date/Time: 05/20/2019 (3945) Clinical Unit Educator: BG Printed Date/Time: 05/24/2019 (2042) BATCH NO: N/A PAGE 2 Signed Report Carry MYNOR Rojas [facility] 05/27/2019 10:27:28 Xr, Hip, Unilateral, 1 View : DIAGNOSTIC IMAGING REPORT [facility] - Medical Imaging Depart - [address] [place] [address] PHONE #: [phone] FAX #: [phone] - Name: MARGRET KNIGHT Loc: [place] Radiology No: : 1955 Age: 67 Sex: F Status: ADM IN Unit No: [id number] Phys: JULIANA DUMONT Acct: [id number] Reason For Exam: OR Exam Date: 12/28/2022 - EXAMS: Diagnosis: CPT: [id number] XR Right Hip 1 View RIGHT TOTAL HIP,OA 00749 Exam: - XR Right Hip 1 View Date/Time of Exam: 12/28/2022 10:50 AM CDT Reason For Exam: RIGHT TOTAL HIP,OA . COMPARISON: None FINDINGS: 2 AP fluoroscopic images of the right hip are submitted. These demonstrate right hip arthroplasty changes which appear well aligned. Total fluoroscopic time is 49.2 seconds. IMPRESSION: Intraoperative fluoroscopic images demonstrating right hip arthroplasty changes. at 1055 Reported and signed by: DONI THOMAS MD CC: JULIANA RODRIGUEZ, ; JULIANA PFEIFFER MD Dictated Date/Time: 12/28/2022 (1054) Technologist: [email or web address] PHIPPS Transcribed Date/Time: 12/28/2022 (1054) Clinical Unit Educator: [email or web address] Printed Date/Time: 12/28/2022 (1057) BATCH NO: N/A PAGE 1 Signed Report JULIANA RODRIGUEZ DO [address] [place], [address], [facility] 12/28/2022 12:03:27 Problems Name Problem SNOMED Code Status Onset Date Resolution Date Notes Provider Name and Address Organization Details Recorded Time Pain of left hip joint 808145412947 100 Completed 05/14/2019 Kathy [place], [place] [facility] 9 14:20:17 Pain in left foot 927023600903 107 Completed 05/14/2019 Kathy medrano [place] - [facility] 9 14:20:11 Pain of bilateral hip joints 478894098229 31955 Active 2018 Kathy medrano [place] - [facility] 9 14:20:32 Pain of hip region 34842502 Active 2022 Veronika medrano [facility] 3 17:03:35 Problem Notes None recorded. Procedures Surgical History Date Name Laterality Status Provider Name and Address Organization Details Recorded Time 12/20/19 23 prosthetic arthroplasty of hip completed Skyler Galvan [facility] 02/02/2023 10:32:10 08/21/19 21 Other completed Veronika Rizzo [facility] 12/05/2022 17:02:52 04/08/20 20 Date of Last Mammogram completed Veronika Rizzo [facility] 12/05/2022 17:02:41 08/21/19 20 Back Surgery completed Veronika Rizzo [facility] 12/05/2022 17:02:52 08/21/19 19 Joint Replacement completed Veronika Rizzo [facility] 12/05/2022 17:02:52 08/21/19 18 prosthetic total arthroplasty of ankle completed Jackeline Murphy [facility] 05/14/2019 14:12:33 08/21/19 14 Other completed Jackeline Murphy [facility] 05/14/2019 14:12:58 Imaging Results None recorded. Procedure Notes None recorded. Medical Equipment None Reported. Allergies No known drug allergies Medications Name Sig Start Date Stop Date Status Note LastModified by Organization Details LastModified Time celecoxib 200 mg capsule TAKE ONE CAPSULE BY MOUTH TWICE DAILY FOR OSTEOARTH RITIS active Not Available Not Available No t Available cyclobenzap rine 10 mg tablet TAKE one TABLET BY MOUTH THREE TIMES DAILY NEEDED active Not Available Not Available No t Available venlafaxine ER 37.5 mg capsule,ext ended release 24 hr TAKE 1 CAPSULE BY MOUTH ONCE DAILY (TO TAKE WITH 75MG CAPSULE DAILY) 11/28 completed Not Available Not Available Not Available prednisone 10 mg tablet TAKE THREE TABLETS BY MOUTH EVERY DAY FOR 5 DAYS 11/28 completed Not Available Not Available Not Available venlafaxine ER 75 mg capsule,ext ended release 24 hr TAKE 1 CAPSULE BY MOUTH ONCE DAILY (TAKE WITH 37.5 CAPSULE DAILY) 11/28 completed Not Available Not Available Not Available alprazolam 1 mg tablet TAKE ONE TABLET BY MOUTH TWICE DAILY NEEDED active Not Available Not Available No t Available meloxicam 15 mg tablet TAKE 1 TABLET BY MOUTH ONCE DAILY 11/28 completed Not Available Not Available Not Available phenazopyri dine 200 mg tablet TAKE 1/2 (ONE-HALF ) TABLET (100 MG) BY MOUTH THREE TIMES DAILY NEEDED FOR DYSURIA FOR 3 DAYS 11/28 completed Not Available Not Available Not Available ondansetron HCl 4 mg tablet 05/14 completed Not Available Not Available Not Available phentermine 37.5 mg tablet TAKE 1 TABLET BY MOUTH ONCE DAILY (PATIENT GOING ON VACTION AND WILL BE OUT OF STATE FOR MORE THAN A MONTH) 11/28 completed Not Available Not Available Not Available sulfamethox azole 800 mg-trimetho prim 160 mg tablet TAKE ONE TABLET BY MOUTH EVERY TWELVE HOURS DIRECTED FOR 7 DAYS active Not Available Not Available No t Available levothyroxi ne 88 mcg tablet TAKE ONE TABLET BY MOUTH EVERY MORNING ON EMPTY STOMACH active Not Available Not Available No t Available methocarbam ol 750 mg tablet TAKE 2 TABLETS BY MOUTH EVERY 8 HOURS NEEDED active Not Available Not Available No t Available oxycodone-a cetaminophe n 10 mg-325 mg tablet active Not Available Not Available No t Available tamsulosin 0.4 mg capsule TAKE ONE CAPSULE BY MOUTH DAILY FOR BLADDER active Not Available Not Available No t Available hydrocodone 7.5 mg-acetamin ophen 325 mg tablet TAKE 1 TABLET BY MOUTH TWICE DAILY NEEDED FOR PAIN 11/28 completed Not Available Not Available Not Available pantoprazol e 40 mg tablet,trey yed release 12/05 completed Not Available Not Available Not Available ropinirole 0.5 mg tablet 11/28 completed Not Available Not Available Not Available pramipexole 0.25 mg tablet 11/28 completed Not Available Not Available Not Available gabapentin 300 mg capsule TAKE ONE CAPSULE BY MOUTH FOUR TIMES DAILY active Not Available Not Available No t Available mupirocin 2 % topical ointment swab each nostril once a day. start five days before surgery continue once a day for ten days after, bring with you to hospital active Not Available Not Available No t Available furosemide 20 mg tablet TAKE 1 TABLET BY MOUTH ONCE DAILY NEEDED FOR EDEMA active Not Available Not Available No t Available doxycycline hyclate 100 mg tablet 05/14 completed Not Available Not Available Not Available progesteron e micronized 100 mg capsule TAKE 1 CAPSULE BY MOUTH AT BEDTIME active Not Available Not Available No t Available bupropion HCl XL 300 mg 24 hr tablet, extended release TAKE ONE TABLET BY MOUTH DAILY active Not Available Not Available No t Available nitrofurant oin monohydrate /macrocryst als 100 mg capsule TAKE ONE CAPSULE BY MOUTH EVERY TWELVE HOURS active Not Available Not Available No t Available Yady-D 24 Hour 180 mg-240 mg tablet,exte nded release TAKE ONE TABLET BY MOUTH EVERY DAY NEEDED active Not Available Not Available No t Available chlorhexidi ne gluconate 0.12 % mouthwash gargle and rinse fifteen mls (one tablespoo n) BY MOUTH once a day for ten days after surgery. (bring to hospital) active Not Available Not Available No t Available FeroSul 325 mg (65 mg iron) tablet TAKE 1 TABLET BY MOUTH TWICE DAILY active Not Available Not Available No t Available diclofenac 1 % topical gel apply two grams to AFFECTED AREA(S) FOUR TIMES DAILY active Not Available Not Available No t Available Vitals Date Recorded Body height Body mass index (BMI) Body weight Heart rate Systolic And Diastolic Provider Name and Address Organization Details Last Updated DateTime 12/05/2022 160.02 cm 22.1 kg/m2 90663.05 g 80 /min 128/84 mm[Hg] Veronika Rizzo [place] - [facility] 12/05/2022 17:02:28 Date Recorded Body height Provider Name an d Address Organization Details Last Updated DateTime 01/12/2023 160.02 cm Veronika Rizzo [place] - [facility] 01/12/2023 11:34:27 Date Recorded Body height Provider Name an d Address Organization Details Last Updated DateTime 02/02/2023 160.02 cm [facility] [place] [facility]/02[facility] 10:31:36 Date Recorded Heart rate Systolic And Diastolic Provider Name and Address Organization Details Last Updated DateTime 05/14/2019 66 /min 155/85 mm[Hg] Kathy Lee [facility] 05/14/2019 14:13:35 Date Recorded Body height Body mass index (BMI) Body weight Provider Name and Address Organization Details Last Updated DateTime 05/14/2019 160.02 cm 31.9 kg/m2 32264.63 g Jackeline Murphy [facility] 05/14/2019 14:10:03 Date Recorded Body height Body mass index (BMI) Body weight Heart rate Systolic And Diastolic Provider Name and Address Organization Details Last Updated DateTime 05/21/2019 160.02 cm 31.9 kg/m2 19658.63 g 73 /min 125/76 mm[Hg] Jesusita Lane [facility] 05/21/2019 14:27:43 Social History Question Answer Notes LastModified by Organizat ion Details LastModified Time Tobacco Smoking Status Former [facility]/05/2022 17:02:48 Do You Have An Advance Directive? Yes [email or web address] Information not available 12/05/2022 Are You Blind Or Do You Have Difficulty Seeing? No Information not available 12/05/2022 Is Blood Transfusion Acceptable In An Emergency? Yes Information not available 12/05/2022 What Is Your Level Of Caffeine Consumption? Moderate [email or web address] Information not available 12/05/2022 How Much Tobacco Do You Chew? None [email or web address] Information not available 12/05/2022 Are You Deaf Or Do You Have Serious Difficulty Hearing? No [email or web address] Information not available 12/05/2022 Which Illicit Or Recreational Drugs Have You Used? None [email or web address] Information not available 12/05/2022 What Is The Highest Grade Or Level Of School You Have Completed Or The Highest Degree You Have Received? [id number] Information not available 12/05/2022 When Did You Quit Smoking? 16+yearssince lastcigarette [email or web address] Information not available 12/05/2022 Which Of Your Hands Is Dominant? Right Information not available 12/05/2022 Can You Walk 100 Feet? No Information not available 05/14/2019 Can You Walk Up Stairs? No Information not available 05/14/2019 Marital Status [email or web address] Informatio n not available 12/05/2022 What Is Your Relationship Status? [email or web address] Information not available 12/05/2022 Do You Have Smoke And Carbon Monoxide Detectors In Your Home? Yes [email or web address] Information not available 12/05/2022 How Much Tobacco Do You Smoke? No [email or web address] Information not available 12/05/2022 Do You Have Difficulty Walking Or Climbing Stairs? Yes [email or web address] Information not available 12/05/2022 Sex: Female Functional Status Question Answer Note LastModified by Organizat ion Details LastModified Time Do you use any illicit or recreational drugs? No [email or web address] Information not available 12/05/2022 Do you or have you ever used any other forms of tobacco or nicotine? No [email or web address] Information not available 12/05/2022 What is your level of alcohol consumption? Occasional [email or web address] Information not available 12/05/2022 Do you or have you ever used smokeless tobacco? Never used smokeless tobacco [email or web address] Information not available 12/05/2022 Are you currently employed? No Information not available 12/05/2022 Are you able to walk independently without assistance or assistive devices? YESWOREST [email or web address] Information not available 12/05/2022 Do you have difficulty doing errands alone? No [email or web address] Information not available 12/05/2022 Are you able to care for yourself independently? Yes Information not available 12/05/2022 What is your occupation? None [email or web address] Information not available 12/05/2022 Do you have difficulty dressing, bathing, grooming, or toileting? No [email or web address] Information not available 12/05/2022 What is your exercise level? Moderate [email or web address] Information not available 12/05/2022 Mental Status Question Answer Note LastModified by Organizat ion Details LastModified Time Do you feel stressed (tense, restless, nervous, or anxious, or unable to sleep at night)? [id number] Information not available 12/05/2022 Do you have difficulty concentrating, remembering or making decisions? No [email or web address] Information no t available 12/05/2022 Family History Relationship Description Onset Age of this Age Resolved Age Notes LastModified by Organization Details LastModified Time Father No current problems or disability [email or web address] Not available 12/05 16:29:10 Mother No current problems or disability [email or web address] Not available 12/05 16:29:10 Mother Sleep apnea pt. added direct ly (11/28) [email or web address] Not available 11/28/2022 11:31:46 Mother Arthritis pt. added direct ly (11/28) [email or web address] Not available 11/28/2022 11:31:58 Mother Chest pain pt. added direct ly (11/28) [email or web address] Not available 11/28/2022 11:32:07 Mother Heart disease pt. added direct ly (11/28) [email or web address] Not available 11/28/2022 11:32:31 Mother Kidney disease pt. added direct ly (11/28) [email or web address] Not available 11/28/2022 11:32:45 Mother Obesity pt. added direct ly (11/28) [email or web address] Not available 11/28/2022 11:33:10 Mother Osteoarthrit is pt. added direct ly (11/28) [email or web address] Not available 11/28/2022 11:33:27 Mother Diabetes mellitus pt. added direct ly (11/28) [email or web address] Not available 11/28/2022 11:34:03 Mother Myocardial infarction pt. added direct ly (11/28) [email or web address] Not available 11/28/2022 11:34:28 Medical History Condition Response Coronary Artery Disease N HIV or AIDS N Gout N Muscle Pain N Joint Pain or Swelling Y Emphysema N Hernia N Mouth Sores N Hip pain when walking N Sexually Transmitted Disease N Lung Disease N Wheezing N Depression N COPD N Blood Clots N Pacemaker N Complication To Anesthesia N STOMACH OR GI ULCERS N Frailty N Heat or cold intolerance N Anxiety Disorder N Swelling of Ankles, Feet or Hands N Upper Back Pain N Gastric Reflux N Arthritis Y Dysphagia N Frequent Urination N Cancer N Stroke N Leg or Foot Ulcers N Circulation Problems N Good Pastures N Headache N GERD N Peptic Ulcer (stomach or duodenal) N High Cholesterol N Muscular Dystrophy N Spitting up Blood N Rheumatoid Arthritis N Dialysis N Fibromyalgia N Leg cramps N Kidney Disease N Hiatal Hernia N RSV N Heart Problems N Memory Loss or Confusion N Mental Disorders N Shoulder Pain Y MRSA - Chronic Infection N Poor Appetite N Migraines N Thyroid Problems Y Arm Pain N Multiple Sclerosis N Back Pain Y Chest Pain N Elevated Cholesterol N Heartburn N Difficulty Walking Y Sleep Apnea (CPAP/BPAP/O2) N Change in bowel habit N Peripheral Vascular Disease (PVD) N Heart Attack (MN) N Itching N Addiction N Rheumatic Fever N Bleeding Disorder N Blood Transfusions N Seizures/Epilepsy N Heart Rhythm Disorder N Ringing in Ears Y Heart Murmur N Tuberculosis N Kidney Failure N Insomnia N Urinary Tract Infection Y Substance Abuse N Leg pain N Warfarin Management N Hepatitis N Pulmonary Embolism N Sore muscles / joints Y Hypertension N Osteoporosis N Gynecological History Statement/Question Response Number of Miscarriages Tubal Have you had a hysterectomy N N Date of Last Mammogram 04/08/2020 Date of LMP 08/21/2014 Number of Pregnancies 1 STIs/STDs N Current Control Method None Age at Menarche I don?t remember If Post Menopausal, Age at Menopause 55 Are you currently sexually a ctive? If yes, how many partners? How often do you have intercourse? No Menses Monthly N Obstetrics History GPAL:G 0 P 0 0 0 0 Past Encounters Encounter ID Performer Location Encounter Start Date Encounter Closed Date Diagnosis/Indication Diagnosis SNOMED-CT Code Diagnosis ICD10 Code Diagnosis IMO Codes Diagnosis Note [id number] Mica ramirez MD [facility] [address] [address] 05/14/2019 13:52:43 05/14/2019 15:18:57 Pain of bilateral hip joints [id number] M25.552 Pain in left foot 699053 4574 78365 M79.672 [id number] Mica ramirez MD [facility] [address] [address] 05/21/2019 14:13:55 05/21/2019 14:43:44 Pain of bilateral hip joints [id number] M25.131 [id number] JULIANA RODRIGUEZ DO [facility] [address] [address] 12/05/2022 16:01:58 12/05/2022 18:07:03 Osteoarthritis of right hip joint [id number] 06500 M16.11 [id number] JULIANA RODRIGUEZ, DO [facility] [address] [place] [address] 01/12/2023 11:22:05 01/12/2023 11:51:29 Osteoarthritis of right hip joint [id number] 77078 M16.11 s/p right mandi on 12/28/22 [id number] JULIANA RODRIGUEZ, DO [facility] [address] [place] [address] 02/02/2023 10:21:16 02/02/2023 12:04:29 Osteoarthritis of right hip joint [id number] 55681 M16.11 s/p right mandi on 12/28/22 Health Concerns Section Related Observation LastModified by Organization Detai ls LastModified Time None Recorded Concern Status LastModified by Organization Details LastModified Time None Recorded Advance Directives Directive Y: Payers Insurance Date Sequence Insurance Name Policy Number Policy Mike Covered Member ID Mike Member ID Guarantor Name 10/14/2019 2 [place] Margret Sowinski [id number] Margret Sowinski 12/05/2022 2 [employer] Margret Sowinski [id number] Margret Sowinski 12/05/2022 2 [employer] [place] Margret Sowinski [id number] Margret Sowinski 03/20/2023 2 [employer] [place] (MEDICARE SUPPLEMENT) Margret Sowinski [id number] Margret Sowinski 02/03/2023 1 [place] Margret S Sowinski [id number] Margret Sowinski 03/20/2023 2 [employer] (PPO) Margret Sowinski [id number] Margret Sowinski 11/28/2022 1 [place] (POS) Mayank S Sowinski [id number] Margret Sowinski 05/15/2019 1 [place] Margret Sowinski [id number] Margret Sowinski 05/15/2019 1 [place] Margret Sowinski [id number] Margret Knight Notes Date Note Type Note Provider Name and Address Organization Details Recorded Time 05/14/2019 text/html Hip(s)Reported b y PatientHPIFor associated symptoms, patient reportsweakness,numbn ess, andtinglingbut reportsno swelling,no redness,no warmth,no ecchymosis,no catching/locking,no popping/clicking,no buckling,no grinding,no instability,no radiation down leg,no drainage,no fever,no chills,no weight loss, andno change in bowel/bladder habits. For location, patient reportsbilateral. For quality, patient reportsachinganddull. For severity, patient reportspain level ndworst pain 05/30. For duration, patient reportsdate of onset: (1998)andcontinuous since onset. For timing, patient reportschronic. For context, patient reportscannot identify. For alleviating factors, patient reportsstanding,rest, andlimited weight bearing. For aggravating factors, patient reportssitting,standi ng,walking, andweightbearing. For previous surgery, patient reportsnone. For prior imaging, patient reportsno recent studies. For previous injections, patient reportsnone. For previous pt, patient reportsnone. For work related, patient reportsno. For working, patient reportsno. Pt is here today with Hudson hip pain for the past 20 years. Pt stated The last 6 months is when the hudson pain started to get worse. Pt stated she is not sure if it is back or just hip pain the pain is mainly into her left hip. The pain is posterior lateral location. She also gets a pain that goes down her thigh with some associated numbness. Complains of lateral left foot pain she has had this for years. Mica Andrews MD [address], [place], [address], [facility] 05/14/2019 15:07:01 05/21/2019 text/html Hip(s)Reported b y PatientHPIFor associated symptoms, patient reportsweakness,numbn ess, andtinglingbut reportsno swelling,no redness,no warmth,no ecchymosis,no catching/locking,no popping/clicking,no buckling,no grinding,no instability,no radiation down leg,no drainage,no fever,no chills,no weight loss, andno change in bowel/bladder habits. For location, patient reportsbilateral. For quality, patient reportsconstant. For severity, patient reportssevere,pain level 3/10, andworst pain 10/10. For duration, patient reportsdate of onset: (05/14/19)and1 weeks. For timing, patient reportsacute. For context, patient reportscannot identify. For alleviating factors, patient reportsrest. For aggravating factors, patient reportswalking. For previous surgery, patient reportsnone. For prior imaging, patient reportsmri. For previous injections, patient reportsnone. For previous pt, patient reportsnone. For work related, patient reportsno. For working, patient reportsno. Patient still is complaining of her back pain radiating to the right lower extremity however it is may be slightly improved today. Mica Andrews MD [address] [facility] [place], [address], [facility] 05/21/2019 14:41:00 12/05/2022 text/html Hip(s)Reported b y PatientHPIFor associated symptoms, patient reportsweakness,numbn ess, andtingling. For location, patient reportsright. For quality, patient reportsaching,throbbi ng,sharp, andconstant. For severity, patient reportspain level 7/10andworst pain 10/10. For duration, patient reports___ years. For timing, patient reportschronic. For context, patient reportscannot identify. For alleviating factors, patient reportsnothing helps. For aggravating factors, patient reportssitting,standi ng,lying down,walking,rom,weig htbearing,exercise,go ing from sit to stand,upstairs, anddownstairs. For previous surgery, patient reportsnone. For prior imaging, patient reportsnone. For previous injections, patient reportsdid not help. For previous pt, patient reportsnone. For work related, patient reportsno. For working, patient reportsno.ROS as noted in the HPI JULIANA RODRIGUEZ DO [address] [place], [address], [facility] 12/07/2022 08:52:40 01/12/2023 text/html Post-Op VisitRep orted by PatientHPIFor onset/timing, patient reportsdate of surgery: (12/28/22). For quality, patient reportsprocedure: (rt mandi).ROS as noted in the HPI some fluid collected under the incision JULIANA RODRIGUEZ DO [address] [place], [address], [facility] 01/12/2023 11:45:51 02/02/2023 text/html Post-Op VisitRep orted by PatientHPIFor onset/timing, patient reportsdate of surgery: (12/28/22). For quality, patient reportsprocedure: (rt mandi). For associated symptoms, patient reportsincision healing well,no fatigue,normal appetite,normal bowel function,no constipation,no nausea,no emesis,pain improving,no pain,no fever,no bleeding,no lower extremity edema/pain, andno dysuria/urinary symptoms.ROS as noted in the HPI doing very well JULIANA RODRIGUEZ DO [address] [place], [address], [facility] 02/02/2023 10:41:41 OBGyn Episode No OBEpisode recorded.
--- OUTSIDE RECORDS SUMMARY | 2025-08-07 18:25 | XMS_ITS | Encounter Summary ---
Author Organization [facility] Address [address] [place] [address] Care Team Providers Care Enrollment Nurse Name Role Phone Carlos Driscoll MD Primary Care Provider [phone] Reason for Referral * MRI (Routine) - Closed Specialty Diagnoses / Procedures Referred By Stephanie turner Referred To Contact Radiology Diagnoses TIA (transient ischemic attack) Procedures MRA NECK W WO CONTRAST Carlos Driscoll MD [address] 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 [address] [place] [address] TIA (transient ischemic attack) Social History Tobacco Use Types Packs/Day Years [...] on file Sexual Orientation Not on file COVID-19 Exposure Response Date Recorded In the last month, have you been in contact with someone who was confirmed or suspected to have Coronavirus / COVID-19? No / Unsure 10/20/2020 3:29 PM COMPUTER SYSTEMS ANALYST documented as of this encounter Plan of Treatment Not on file documented as of this encounter Results * MRA NECK W WO CONTRAST (11/12/2020 3:20 PM CDT) Anatomical Region Laterality Modality Head Magnetic Resonan ce 11/12/2020 3:20 PM CDT Impressions 11/12/2020 3:46 PM CDT IMPRESSION: No significant carotid stenosis is seen. Both internal carotid arteries are tortuous and the right side has a mild kink present. Narrative 11/12/2020 3:46 PM CDT Exam: MRA NECK W WO CONTRAST Date/Time of Exam: 11/12/2020 3:20 PM Reason For Exam: See Diagnosis TIA (transient ischemic attack). TECHNIQUE:Multiplanar multisequence imaging is obtained with and without IV contrast. Maximum intensity projection images are obtained with. 20 mL of ProHance was given intravenously. FINDINGS: There is mild narrowing of the mid common carotid artery by less than 20%. Both internal carotid arteries are widely patent but significantly tortuous. The right side has a mild kink in it. NASCET equivalent criteria utilized. Procedure Note Clifton Londono MD - 11/12/2020 Exam: MRA NECK W WO CONTRAST Date/Time of Exam: 11/12/2020 3:20 PM Reason For Exam: See Diagnosis TIA (transient ischemic attack). TECHNIQUE:Multiplanar multisequence imaging is obtained with and without IV contrast. Maximum intensity projection images are obtained with. 20 mL of ProHance was given intravenously. FINDINGS: There is mild narrowing of the mid common carotid artery by less than 20%. Both internal carotid arteries are widely patent but significantly tortuous. The right side has a mild kink in it. NASCET equivalent criteria utilized. IMPRESSION: No significant carotid stenosis is seen. Both internal carotid arteries are tortuous and the right side has a mild kink present. us Carlos Driscoll MD MR ORDERABLES Final Resul t * MRA HEAD WO CONTRAST (11/12/2020 3:15 PM CDT) Anatomical Region Laterality Modality Head Magnetic Resonan ce 11/12/2020 3:16 PM CDT Impressions 11/12/2020 3:41 PM CDT IMPRESSION: 1. The posterior campo of Shah is incomplete but no other vascular abnormalities are identified. Narrative 11/12/2020 3:41 PM CDT Exam: MRA HEAD WO CONTRAST Date/Time of Exam: 11/12/2020 3:15 PM Reason For Exam: See Diagnosis TIA (transient ischemic attack). TECHNIQUE: MRA of the campo of Shah was performed utilizing 3-D [id number] SPGR imaging. No IV contrast was utilized. FINDINGS: The vertebral arteries are patent. The basilar artery is unremarkable and has a normal bifurcation. The intracranial internal carotid arteries are patent with normal bifurcation. The A1 segments and remainder of the anterior cerebral arteries are unremarkable. The middle cerebral artery and branches are grossly unremarkable. No definite aneurysms or significant areas of stenoses are noted. 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 Procedure Note Clifton Londono MD - 11/12/2020 Exam: MRA HEAD WO CONTRAST Date/Time of Exam: 11/12/2020 3:15 PM Reason For Exam: See Diagnosis TIA (transient ischemic attack). TECHNIQUE: MRA of the campo of Shah was performed utilizing 3-D odqf-pv-[id number] SPGR imaging. No IV contrast was utilized. FINDINGS: The vertebral arteries are patent. The basilar artery is unremarkable and has a normal bifurcation. The intracranial internal carotid arteries are patent with normal bifurcation. The A1 segments and remainder of the anterior cerebral arteries are unremarkable. The middle cerebral artery and branches are grossly unremarkable. No definite aneurysms or significant areas of stenoses are noted. 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 IMPRESSION: 1. The posterior campo of Shah is incomplete but no other vascular abnormalities are identified. Carlos Driscoll MD MR ORDERABLES Final Resul t documented in this encounter Visit Diagnoses Diagnosis TIA (transient ischemic attack) Unspecified transient cerebral ischemia TIA (transient ischemic attack) Unspecified transient cerebral ischemia TIA (transient ischemic attack) Unspecified transient cerebral ischemia documented in this encounter Care Teams Enrollment Nurse Relationship Specialty Start Date End Date Carlos Driscoll MD [address] [facility] [address] [place] [address] PCP - General Emergency Medicine 11/12/20 documented as of this encounter
--- OUTSIDE RECORDS SUMMARY | 2025-08-07 18:25 | XMS_ITS | Data Portability ---
Author Organization [place] - GABRIELA SHELTON [facility] Address [address] [place] [id number] Assessment Encounter Date Assessment Date Assessment LastModified by Organization Details LastModified Time 10/14/2023 10/14/2023 Assessment: Condition Status: stable Goals:Improvi ng Follow-up:SHIRLEY [email or web address] Not available 10/14/2023 16:31:28 Plan of Treatment Reminders Order Date Submit Date Provider Last Modified By Organization Details Last Modified Time Details Appointments None recorded. Lab None recorded. Referral None recorded. Procedures None recorded. Surgeries None recorded. Imaging None recorded. Medication Orders mupirocin 2 % topical ointment 2023 024 [facility] 5433, [facility], [address], 4 16:31:40 cephalexin 500 mg capsule 2023 024 [facility] 5433, [address], [address], 4 16:31:42 ketorolac 30 mg/mL (1 mL) injection solution 2022 023 [email or web address] Not available 4 16:09:19 diclofenac 1 % topical gel 2022 023 [facility], [address] [place] [address], [address], 3 11:51:22 Patient TargetsNo targets recorded. Patient Instructions Encounter Date Encounter Id Patient Instructions Last Modified By Organization Details Last Modified Time 11/24/2022 [id number] Elbow Bursitis: Care Instructions Not available 11/24/2022 11:42:20 elbow bursitis: exercises Not available 11/24/2022 11:42:20 10/14/2023 [id number] learning about healthy weight Not available 10/14/2023 16:31:33 body mass index: care instructions [email or web address] Not available 10/14/2023 16:31:34 Reason for Referral None Reported. Results Created Date Observation Date Name Description Value Unit Range Abnormal Flag Note LastModifiedBy Organization Detail LastModifiedTime 07/18/2007/18/2023 COMPL ETE BLOOD COUNT AUTO DIFF white blood cell 4.8 K/uL 4.0-11 .0 normal Not Available [facility] [address], [place], [address], 07/18/2023 16:14:47 07/18/20 23 07/18/2023 COMPL ETE BLOOD COUNT AUTO DIFF red blood cell 3.96 M/uL 4.00-5 .50 low Not Available [facility] [address], [place], [address], 07/18/2023 16:14:47 07/18/20 23 07/18/2023 COMPL ETE BLOOD COUNT AUTO DIFF hemoglobin 12.8 g/dL 12.0-1 6.0 normal Not Available [facility] [address], [place], [address], 07/18/2023 16:14:47 07/18/20 23 07/18/2023 COMPL ETE BLOOD COUNT AUTO DIFF hematocrit 40.3 % 36.0-4 8.0 normal Not Available [facility] [address], [place], [address], 07/18/2023 16:14:47 07/18/20 23 07/18/2023 COMPL ETE BLOOD COUNT AUTO DIFF mean corpuscular volume 101.8 fL 80.0-1 00.0 high Not Available [facility] [address], [place], [address], 07/18/2023 16:14:47 07/18/20 23 07/18/2023 COMPL ETE BLOOD COUNT AUTO DIFF mean corpuscular hemoglobin 32.3 pg 26.0-3 4.0 normal Not Available [facility] [address] [facility] B, [place], [address], 07/18/2023 16:14:47 07/18/20 23 07/18/2023 COMPL ETE BLOOD COUNT AUTO DIFF mean corpuscular hemoglobin concentratio n 31.8 g/dL 31.0-3 7.0 normal Not Available [facility] [address] Marcus Garc[address], [place], [address], 07/18/2023 16:14:47 07/18/20 23 07/18/2023 COMPL ETE BLOOD COUNT AUTO DIFF platelets 193 K/uL 150-45 0 normal Not Available [facility] [address] Garc[address], [place], [address], 07/18/2023 16:14:47 07/18/20 23 07/18/2023 COMPL ETE BLOOD COUNT AUTO DIFF mean platelet volume 11.6 fL 7.4-10 .4 high Not Available [facility] [address] [facility] B, [place], [address], 07/18/2023 16:14:47 07/18/20 23 07/18/2023 COMPL ETE BLOOD COUNT AUTO DIFF neutrophil, percentage 52.3 % 42.0-7 5.0 normal Not Available [facility] [address] Garc[address] B, [place], [address], 07/18/2023 16:14:47 07/18/20 23 07/18/2023 COMPL ETE BLOOD COUNT AUTO DIFF lymphocyte, percentage 36.8 % 10.0-5 8.0 normal Not Available [facility] [address], [place], [address], 07/18/2023 16:14:47 07/18/20 23 07/18/2023 COMPL ETE BLOOD COUNT AUTO DIFF mixed, percentage 10.9 % 0.0-12 .0 normal Not Available [facility] [address] Marcus García B, [place], [address], 07/18/2023 16:14:47 07/18/20 23 07/18/2023 COMPL ETE BLOOD COUNT AUTO DIFF neutrophil, absolute 2.5 K/uL 2.0-7. 8 normal Not Available [facility] [address] Marcus Mariano B, [place], [address], 07/18/2023 16:14:47 07/18/20 23 07/18/2023 COMPL ETE BLOOD COUNT AUTO DIFF lymphocyte, absolute 1.8 K/uL 0.6-4. 1 normal Not Available [facility] [address] Marcus Mariano B, [place], [address], 07/18/2023 16:14:47 07/18/20 23 07/18/2023 COMPL ETE BLOOD COUNT AUTO DIFF mixed, absolute 0.5 K/uL 0.3-0. 8 normal Not Available [facility] [address] Mariano [address], [place], [address], 07/18/2023 16:14:47 07/18/20 23 07/18/2023 COMPL ETE BLOOD COUNT AUTO DIFF RDW-CV 12.9 fL 11.5-1 4.5 normal Not Available [facility] [address] Mariano [address], [place], [address], 07/18/2023 16:14:47 07/18/20 23 07/18/2023 COMPL ETE BLOOD COUNT AUTO DIFF red cell distribution width 51.4 % 39.1-5 1.8 normal Not Available [facility] [address] Mariano [address], [place], [address], 07/18/2023 16:14:47 07/18/20 23 07/18/2023 MAGNE SIUM magnesium 1.7 mg/dL 1.6-2. 3 normal Not Available [facility] [place] [address] [address] Garc[address], [place], [address], 07/18/2023 18:05:37 07/18/20 23 07/18/2023 COMPR EHENS CHAPIN METAB OLIC PANEL glucose 99 mg/dL 74-106 normal Not Available [facility] [place] [address] [address] Marcus Sebastian, [place], [address], 07/18/2023 18:05:40 07/18/20 23 07/18/2023 COMPR EHENS CHAPIN METAB OLIC PANEL BUN 18 mg/dL 9-20 normal Not Available [facility] [address] [facility] B, [place], [address], 07/18/2023 18:05:40 07/18/20 23 07/18/2023 COMPR EHENS CHAPIN METAB OLIC PANEL creatinine 0.98 mg/dL 0.52-1 .04 normal Not Available [facility] [address] [facility] B, [place], [address], 07/18/2023 18:05:40 07/18/20 23 07/18/2023 COMPR EHENS CHAPIN METAB OLIC PANEL eGFR 68.61 mL/mi n/1.7 3m2 >59.00 normal Using the modif ied MDRD study equat ions, GFR calcu latio ns are not valid in patie nts less than 18 years of age. Not Available [facility] [place] [address] [address] Marcus Sebastian, [place], [address], 07/18/2023 18:05:40 07/18/20 23 07/18/2023 COMPR EHENS CHAPIN METAB OLIC PANEL eGFR non- 56.61 mL/mi n/1.7 3m2 >59.00 low Using the modif ied MDRD study equat ions, GFR calcu latio ns are not valid in patie nts less than 18 years of age. Not Available [facility] [address], [place], [place], [address], 07/18/2023 18:05:40 07/18/20 23 07/18/2023 COMPR EHENS CHAPIN METAB OLIC PANEL BUN/creat ratio 18.37 ratio 6.00-2 2.00 normal Not Available [facility] [address], [place], [place], [address], 07/18/2023 18:05:40 07/18/20 23 07/18/2023 COMPR EHENS CHAPIN METAB OLIC PANEL bilirubin, total 0.5 mg/dL 0.2-1. 3 normal Not Available [facility] [address], [place], [address], 07/18/2023 18:05:40 07/18/20 23 07/18/2023 COMPR EHENS CHAPIN METAB OLIC PANEL AST (SGOT) 24 U/L 14-36 normal Not Available [facility] [address], [place], [address], 07/18/2023 18:05:40 07/18/20 23 07/18/2023 COMPR EHENS CHAPIN METAB OLIC PANEL ALT (SGPT) 20 U/L <35 normal Not Available [facility] [address], [place], [address], 07/18/2023 18:05:40 07/18/20 23 07/18/2023 COMPR EHENS CHAPIN METAB OLIC PANEL alkaline phosphatase 84 U/L 38-126 normal Not Available [facility] [address], [place], [address], 07/18/2023 18:05:40 07/18/20 23 07/18/2023 COMPR EHENS CHAPIN METAB OLIC PANEL calcium 10.1 mg/mL 8.4-10 .5 normal Not Available [facility] [address], [place], [address], 07/18/2023 18:05:40 07/18/20 23 07/18/2023 COMPR EHENS CHAPIN METAB OLIC PANEL sodium 140 mmol/ L 135-14 5 normal Not Available [facility] [address], [place], [address], 07/18/2023 18:05:40 07/18/20 23 07/18/2023 COMPR EHENS CHAPIN METAB OLIC PANEL potassium 3.5 mmol/ L 3.5-5. 1 normal Not Available [facility] [address], [place], [address], 07/18/2023 18:05:40 07/18/20 23 07/18/2023 COMPR EHENS CHAPIN METAB OLIC PANEL chloride 106 mmol/ L 98-107 normal Not Available [facility] [address], [place], [address], 07/18/2023 18:05:40 07/18/20 23 07/18/2023 COMPR EHENS CHAPIN METAB OLIC PANEL CO2 23 mmol/ L 22-30 normal Not Available [facility] [address], [place], [address], 07/18/2023 18:05:40 07/18/20 23 07/18/2023 COMPR EHENS CHAPIN METAB OLIC PANEL anion gap 15 mmol/ L 7-16 normal Not Available [facility] [address], [place], [address], 07/18/2023 18:05:40 07/18/20 23 07/18/2023 COMPR EHENS CHAPIN METAB OLIC PANEL total protein 7.1 g/dL 6.3-8. 2 normal Not Available [facility] [address], [place], [address], 07/18/2023 18:05:40 07/18/20 23 07/18/2023 COMPR EHENS CHAPIN METAB OLIC PANEL albumin 4.0 g/dL 3.5-5. 0 normal Not Available [facility] [address] [facility] J[place], [place], [address], 07/18/2023 18:05:40 07/18/20 23 07/18/2023 COMPR EHENS CHAPIN METAB OLIC PANEL globulin 3.10 Not Available [facility] [address] [place], [place], [address], 07/18/2023 18:05:40 07/18/20 23 07/18/2023 COMPR EHENS CHAPIN METAB OLIC PANEL albumin/glob ulin 1.3 ratio Not Available [facility] [address], [place], [address], 07/18/2023 18:05:40 07/18/20 23 07/18/2023 FREE T3 free T3 3.01 pg/mL 2.77-5 .27 normal Not Available [facility] [address], [place], [address], 07/18/2023 18:29:01 07/18/20 23 07/18/2023 VITAM IN D 25 HYDRO XY vitamin D, 25 hydroxy 40 NG/mL 30-100 normal Defec ient <20 ng/mL ; Insuf ficie nt 20-<3 0 ng/mL ; Suffi cient 30-10 0 ng/mL ; Poten tial Toxic ity >100 ng/mL Not Available [facility] [address] [place], [place], [address], 07/18/2023 18:29:02 07/18/20 23 07/18/2023 FREE T4 free T4 1.44 NG/dL 0.78-2 .19 normal Not Available [facility] [address], [place], [address], 07/18/2023 18:29:03 07/18/20 23 07/18/2023 TSH TSH 0.81 mIU/L 0.46-4 .68 normal This test is ran on the [facility] Vitro s 5600. Ortho state s this metho dolog y has a known Bioti n inter feren ce. Pleas e note, patie nts takin g Bioti n can have a lower TSH resul t when teste d on this instr ument . Not Available [facility] [address], [place], [address], 07/18/2023 18:37:24 07/19/2007/19/2023 FOLAT E folate >20.00 NG/mL 2.76-2 0.00 normal Folat e Defic ient Patie nts 1.04- 2.76 ng/mL Not Available [facility] [address], [place], [address], 07/19/2023 18:43:34 Result Notes None recorded. 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 Medical Equipment None Reported. Allergies No known drug allergies Medications Name Sig Start Date Stop Date Status Note LastModified by Organization Details LastModified Time celecoxib 200 mg capsule TAKE 1 CAPSULE BY MOUTH TWICE DAILY FOR OSTEOARTH RITIS active Not Available Not Available No t Available cyclobenzap rine 10 mg tablet TAKE 1 TABLET BY MOUTH ONCE DAILY AT BEDTIME NEEDED FOR MUSCLE SPASM active Not Available Not Available No t Available venlafaxine ER 37.5 mg capsule,ext ended release 24 hr active Not Available Not Available Not Available prednisone 10 mg tablet TAKE THREE TABLETS BY MOUTH EVERY DAY FOR 5 DAYS 10/14 completed Not Available Not Available Not Available venlafaxine ER 75 mg capsule,ext ended release 24 hr active Not Available Not Available Not Available alprazolam 1 mg tablet TAKE 1 TABLET BY MOUTH THREE TIMES DAILY active Not Available Not Available No t Available tizanidine 4 mg tablet active Not Available Not Available Not Available meloxicam 15 mg tablet active Not Available Not Available Not Available phenazopyri dine 200 mg tablet TAKE 1/2 (ONE-HALF ) TABLET (100 MG) BY MOUTH THREE TIMES DAILY NEEDED FOR DYSURIA FOR 3 DAYS active Not Available Not Available No t Available sulfamethox azole 800 mg-trimetho prim 160 mg tablet TAKE ONE TABLET BY MOUTH EVERY TWELVE HOURS DIRECTED FOR 7 DAYS active Not Available Not Available No t Available ketorolac 30 mg/mL (1 mL) injection solution Inject 1 mL every 6 hours by intramusc ular route. 10/14 completed Not Available Not Available Not Available ketorolac 10 mg tablet TAKE 1 TABLET BY MOUTH THREE TIMES DAILY NEEDED active Not Available Not Available No t Available levothyroxi ne 88 mcg tablet TAKE 1 TABLET BY MOUTH IN THE MORNING ON AN EMPTY STOMACH active Not Available Not Available No t Available methocarbam ol 750 mg tablet TAKE 2 TABLETS BY MOUTH THREE TIMES DAILY NEEDED active Not Available Not Available No t Available oxycodone-a cetaminophe n 10 mg-325 mg tablet TAKE 1 TABLET BY MOUTH EVERY 6 HOURS NEEDED FOR SEVERE PAIN SCALE 7-10 active Not Available Not Available No t Available tamsulosin 0.4 mg capsule TAKE 1 CAPSULE BY MOUTH ONCE DAILY FOR BLADDER active Not Available Not Available No t Available prednisone 2.5 mg tablet TAKE 1 TABLET BY MOUTH ONCE DAILY active Not Available Not Available No t Available cephalexin 500 mg capsule TAKE 1 CAPSULE BY MOUTH THREE TIMES DAILY active Not Available Not Available No t Available pantoprazol e 40 mg tablet,trey yed release active Not Available Not Available Not Available ropinirole 0.5 mg tablet active Not Available Not Available Not Available pramipexole 0.25 mg tablet active Not Available Not Available Not Available gabapentin 300 mg capsule TAKE 1 CAPSULE BY MOUTH 4 TIMES DAILY active Not Available Not Available No t Available diclofenac sodium 75 mg tablet,trey yed release active Not Available Not Available Not Available hydroxyzine HCl 25 mg tablet TAKE ONE TABLET BY MOUTH EVERY 8 HOURS NEEDED FOR ITCHING active Not Available Not Available No t Available mupirocin 2 % topical ointment APPLY A SMALL AMOUNT OF OINTMENT TOPICALLY TO AFFECTED AREA 3 TIMES DAILY active Not Available Not Available No t Available furosemide 20 mg tablet TAKE 1 TABLET BY MOUTH ONCE DAILY NEEDED FOR EDEMA active Not Available Not Available No t Available methylpredn isolone 4 mg tablets in a dose pack Follow Package Direction s active Not Available Not Available No t Available fluticasone propionate 50 mcg/actuati on nasal spray,suspe nsion USE 1 SPRAY(S) IN EACH NOSTRIL IN THE MORNING active Not Available Not Available No t Available progesteron e micronized 100 mg capsule TAKE 1 CAPSULE BY MOUTH AT BEDTIME active Not Available Not Available No t Available amoxicillin 875 mg-potassiu m clavulanate 125 mg tablet TAKE 1 TABLET BY MOUTH TWICE DAILY active Not Available Not Available No t Available bupropion HCl XL 300 mg 24 hr tablet, extended release TAKE 1 TABLET BY MOUTH ONCE DAILY active Not Available Not Available No t Available nitrofurant oin monohydrate /macrocryst als 100 mg capsule TAKE 1 CAPSULE BY MOUTH TWICE DAILY FOR UTI 10/14 completed Not Available Not Available Not Available Yady-D 24 Hour 180 mg-240 mg [...] height Body mass index (BMI) Body weight Oxygen saturation Heart rate Body temperature Systolic And Diastolic Provider Name and Address Organization Details Last Updated DateTime 4 162.56 cm 22.7 kg/m2 47827.2 9 g 97 % 77 /min 97.7 [degF] 123/79 mm[Hg] Anna Decker RT(R) SIRI LOWE - [facility] 4 16:08:56 Date Recorded Body mass index (BMI) Body height Provider Name and Address Organization Details Last Updated DateTime 11/24/2022 23.5 kg/m2 162.56 cm Kassidy David, HOSPICE CLINICAL SUPERVISOR [address], [place], [address], [place] - [facility] 11/24/2022 13:41:42 Date Recorded Body weight Oxygen saturation Heart rate Body temperature Systolic And Diastolic Provider Name and Address Organization Details Last Updated DateTime 3 49875.1 5 g 98 % 70 /min 98.5 [degF] 118/74 mm[Hg] Mag ramirez LPN [place] [facility] 3 11:38:25 Social History None recorded. Functional Status None recorded. Mental Status None recorded. Family History Nothing Reported. Medical History No medical history recorded. Gynecological HistoryNo gynecological history recorded. Obstetrics History GPAL:G 0 P 0 0 0 0 Past Encounters Encounter ID Performer Location Encounter Start Date Encounter Closed Date Diagnosis/Indication Diagnosis SNOMED-CT Code Diagnosis ICD10 Code Diagnosis IMO Codes Diagnosis Note [id number] Low Adkins MD [address] [address] 11/24/2022 11:34:20 11/25/2022 08:37:42 Bursitis of olecranon of right elbow 8001325052 [address] M70.21 Bursitis is pain and swelling of the bursae. These are sacs of fluid that help your joints move smoothly. Olecranon bursitis is a type of bursitis that affects the back of the elbow. This is sometimes called Jon elbow because the bump that develops looks like the cartoon character Jon's elbow.Inju ry, overuse, or prolonged pressure on your elbow can cause this form of bursitis. Sometimes it happens when people have arthritis. It also can occur for unknown reasons.Tr eatment may include draining fluid from the bursa with a needle. If your doctor thought there was infection, he or she may have prescribed antibiotic s. You also may get shots of medicine into the bursa to help the swelling go down. Your elbow should get better in a few days or weeks. Body mass index 20-24 - normal 642808859 Z68.23 23.5 [id number] Olegario Rodriguez DO [facility] [address] [address] 10/14/2023 15:58:27 10/14/2023 16:34:21 Body mass index 20-24 - normal 491892316 Z68.22 22.7 Fall W19.XXXA denies any LOC Abrasion of face 3178152 08 S00.81XA wound cleaned and dressing Health Concerns Section Related Observation LastModified by Organization Detai ls LastModified Time None Recorded Concern Status LastModified by Organization Details LastModified Time None Recorded Advance Directives Directive None Recorded Payers None recorded. Notes Date Note Type Note Provider Name and Address Organization Details Recorded Time 3 text/html Joint & Soft Tissue PainReported by PatientHPIFor quality, patient reportsachingandtrend is worsening(swollen, hot, and red). For severity, patient reportsmoderate. For alleviating factors, patient reportsnothing helps. For associated symptoms, patient reportsweakness,swelling,r edness, andwarmthbut reportsno numbness,no tingling,no ecchymosis,no catching/locking,no popping/clicking,no buckling,no grinding,no instability,no radiation down leg,no fever/chills,no weight loss, andno change in bowel/bladder habits. For location, patient reportsright. For timing, patient reportsconstant. For duration, patient reports3 days. For context, patient reportsbendingandtwisting. Kassidy David NP [address], [place], [address], [facility] 11/24/2022 13:42:26 4 text/html FallReported by PatientHPIFor location of injury, patient reportsface (left side of jaw). For onset/timing, patient radfnuq52 minutes ago. For context, (fell and hit a branch with her face.). Olegario Rodriguez DO [address], [place], [address], [facility] 10/19/2023 17:13:01 OBGyn Episode No OBEpisode recorded.
--- NOTE | 2025-08-07 18:40 | ED_ITS ---
HPI - Headache General Chief Complaint: Headache Stated Complaint: headache Time Seen by Provider: 08/07/25 18:00 History of Present Illness HPI Narrative: Patient is a 69-year-old female who presents to the ER with a headache that started approximately 1 hour prior to arrival. She reports she feels as though there is pulsating behind my eyes. Patient denies any numbness and tingling in her extremities, visual changes, vomiting. She endorses sweats and her family member reports she was burning up. Patient reports she is unsure if this is the worst headache of her life. She endorses a history cervical neck surgery, high blood pressure, and thyroid issues. Related Data Allergies Allergy/AdvReac Type Severity Reaction Status Date / Time No Known Allergies Allergy Verified 08/07/25 18:08 Review of Systems 2 Review of Systems: All systems reviewed & are unremarkable except as noted in HPI and below Exam 2 Narrative: GENERAL: Ill appearing, well-nourished, non-toxic, in mild distress. HEAD: Normocephalic, atraumatic. NECK: Supple. No adenopathy, no masses. RESPIRATORY: Airway patent, respirations nonlabored. Clear to auscultation bilaterally, no rales, rhonchi, wheezing. CARDIOVASCULAR: Regular rate and rhythm without murmurs, rubs, or gallops. Peripheral pulses 2+ and equal bilaterally. ABDOMINAL: Soft, nontender, nondistended, no hepatosplenomegaly. Normoactive BS. MUSCULOSKELETAL: Moves all extremities. Strength/ROM intact without gross deformities. SKIN: Warm, dry, normal color. No rashes. NEURO: A&O X3. Speech clear. Cranial nerves II-XII intact. No ataxic movements. PSYCHIATRIC: Appropriate mood and affect. Normal interaction. Tearful. Course Vital Signs Vital signs: Vital Signs Temperature 36.4 C L 08/07/25 17:55 Pulse Rate 68 08/07/25 17:55 Respiratory Rate 16 08/07/25 17:55 Blood Pressure 178/96 H 08/07/25 17:55 Pulse Oximetry 100 08/07/25 17:55 Oxygen Delivery Room Air 08/07/25 17:55 Temperature 36.4 C L 08/07/25 17:55 Pulse Rate 68 08/07/25 17:55 Respiratory Rate 16 08/07/25 17:55 Blood Pressure 178/96 H 08/07/25 17:55 Pulse Oximetry 100 08/07/25 17:55 Oxygen Delivery Room Air 08/07/25 17:55 [facility] MDM Narrative Medical decision making narrative: Patient is a 69-year-old female who presents to the ER with a headache that started approximately 1 hour prior to arrival. She reports she feels as though there is pulsating behind my eyes. Patient denies any numbness and tingling in her extremities, visual changes, vomiting. She endorses sweats and her family member reports she was burning up. Patient reports she is unsure if this is the worst headache of her life. She endorses a history cervical neck surgery, high blood pressure, and thyroid issues. Labs Ordered: CBC, CMP, TSH, COVID/flu/RSV Imaging Ordered: CT brain Medications Ordered: Benadryl IV, Decadron IV, 1 L normal saline IV bolus, magnesium 1 g IV, potassium chloride p.o., Toradol IV Results: Patient's CT scan indicates No acute intracranial hemorrhage, acute infarction or abnormal extra axial fluid collection. Ventricles are normal and symmetric. No mass/mass effect. Changes of bilateral intraocular lens replacement. The orbits, paranasal sinuses and mastoid air cells are normal. Diagnosis: Headache, abnormal thyroid levels, hypokalemia Patient Education/Shared MDM: Results of lab work and imaging shared with patient. She endorses improvement of symptoms following medication administration. Pt reports she would like to be discharged home. Extensive discussion between patient, patient's family member and [employer] regarding pt's thyroid levels and her need to follow-up. She reports her PCP in [place], [place] prescribes her thyroid medication. It was advised pt call their office as soon as possible for further guidance and direction. Patient strongly advised to maintain hydration status and increase her potassium intake upon discharge. She will be discharged home with a prescription for Zofran. Strict return precautions provided. Patient verbalized understanding and is in agreement with plan. Vital signs stable at time of discharge. All questions answered. Differential Diagnosis Differential Diagnosis: Migraine headache, subdural hematoma, brain tumor, normal thyroid levels, hypokalemia, abnormal lab value Lab Data [facility] Lab Attestation statement: I personally reviewed the patient's lab results. 08/07/25 19:16 08/07/25 19:16 Labs: Lab Results 12/18/25 Range/Units 19:16 WBC 6.1 (4.5-10.0) K/mm3 RBC 3.85 L (4.2-5.4) M/mm3 Hgb 12.3 (12.0-15.0) g/dL Hct 37.7 (37.0-47.0) % MCV 97.9 (80-100) fl MCH 31.9 (26-34) pg MCHC 32.6 (32-36) g/dl RDW 13.9 (11.5-14.5) % Plt Count 177 (150-375) k/mm3 MPV 11.9 H (7.4-10.4) fl Immature Gran % (Auto) 0.2 (0-0.5) % Neut % (Auto) 70.1 (45.5-73.1) % Lymph % (Auto) 16.3 L (18.3-44.2) % Loup % (Auto) 11.3 H (2.6-8.5) % Eos % (Auto) 1.8 (0-4.4) % Baso % (Auto) 0.3 (0.2-1.2) % Lymph # (Auto) 0.99 (0.9-3.2) K/mm3 Loup # (Auto) 0.7 H (0.1-0.6) K/mm3 Eos # (Auto) 0.1 (0-0.3) K/mm3 Baso # (Auto) 0.0 (0.0-0.1) K/mm3 Abs Immat Gran (auto) 0.01 (0.00-0.031) K/mm3 Absolute Neuts (auto) 4.3 (1.3-6.7) K/mm3 Absolute Nucleated RBC 0.000 (0.0-0.012) K/mm3 Nucleated RBC % 0.0 (0.0-0.2) % Sodium 139 (137-145) mmol/L Potassium 3.1 L (3.4-5.0) mmol/L Chloride 111 H (98-107) mmol/L Carbon Dioxide 20 L (22-30) mmol/L Anion Gap 8 (4-12) mmol/L BUN 22 H (7-17) mg/dL Creatinine 0.96 (0.7-1.0) mg/dL Estim Creat Clear Calc Not Reportable Estimated GFR 58 L (59 - ) Glucose 83 (65-110) mg/dL Calcium 9.6 (8.4-10.2) mg/dL Total Bilirubin 0.5 (0.2-1.3) mg/dL AST 22 (14-36) U/L ALT 18 (6-35) U/L Alkaline Phosphatase 79 (38-126) U/L Total Protein 6.8 (6.3-8.2) g/dL Albumin 3.9 (3.5-5.1) g/dL TSH (Reflex) < 0.015 L (0.465-4.68) uIU/mL Free T4 Pending Influenza A (RT-PCR) Negative (Negative) Influenza B (RT-PCR) Negative (Negative) RSV (RT-PCR) Negative (Negative) SARS-CoV-2 RNA (RT-PCR) Negative (Negative) Imaging Data Attestation: I personally reviewed and interpreted this imaging study as follows: Radiologist's impression: ITS Impressions Head CT 08/07/25 18:56 IMPRESSION: 1. No acute intracranial process. Discharge Plan Discharge Clinical Impression: Headache, Hypokalemia, Abnormal thyroid function test Patient Disposition: Home Condition: Stable Instructions: Antibiotic Form, Hypokalemia (ED), Acute Headache (ED) Additional Instructions: Please return to the ER with any worsening symptoms. Follow-up with primary care provider as soon as possible for further evaluation and treatment of your thyroid levels. Take all medications as prescribed, including regularly scheduled medications. You may take Tylenol and/or ibuprofen for headaches. Please take Zofran as needed for nausea. Remember to drink lots of water and increase your potassium intake. Patient Language: [place] Prescriptions: New ondansetron 4 mg tablet,disintegrating 4 mg PO Q6H PRN (Reason: nausea and vomiting) Qty: 20 0RF Follow-up/Referrals: UNKNOWN,DOCTOR [Primary Care Provider] Time of Disposition: 20:54
[2025-08-07] MEDS: dexAMETHasone SOD PHOS INJ 10 MG/ML 1 ML VIAL IV PUSH (19:00)
[2025-08-07] MEDS: SODIUM CHLORIDE 0.9% IV 1,000 ML 999 ML IV CONT (19:00)
[2025-08-07] MEDS: METOCLOPRAMIDE HCL INJ 10 MG/2 ML VIAL IV PUSH (19:07)
[2025-08-07] MEDS: MAGNESIUM SULF 1 GM/D5W 100 ML 1 GM/100 ML BAG IVPB (19:08)
[2025-08-07 19:27] LABS: Hematocrit 37.7 % (37.0-47.0); Hemoglobin 12.3 g/dL (12.0-15.0); Immature Granulocyte Percent A 0.2 % (0-0.5); Lymphocytes Absolute Auto 0.99 K/mm3 (0.9-3.2); Mean Corpuscular HGB Conc 32.6 g/dl (32-36); Mean Corpuscular Hemoglobin 31.9 pg (26-34); Mean Corpuscular Volume 97.9 fl (80-100); Nucleated Red Blood Cells Absolute Auto 0.000 K/mm3 (0.0-0.012); Nucleated Red Blood Cells Perc 0.0 % (0.0-0.2); Platelet Count Result 177 k/mm3 (150-375); Red Blood Count 3.85 M/mm3 (4.2-5.4); White Blood Count 6.1 K/mm3 (4.5-10.0)
[2025-08-07 19:34] LABS: Alanine Aminotransferase 18 U/L (6-35); Albumin Level 3.9 g/dL (3.5-5.1); Alkaline Phosphatase 79 U/L (38-126); Anion Gap 8 mmol/L (4-12); Aspartate Amino Transferase 22 U/L (14-36); Bilirubin,Total 0.5 mg/dL (0.2-1.3); Blood Urea Nitrogen 22 mg/dL (7-17); Calcium 9.6 mg/dL (8.4-10.2); Carbon Dioxide 20 mmol/L (22-30); Chloride 111 mmol/L (98-107); Estimated Glomerular Filt Rate 58; Glucose 83 mg/dL (65-110); Potassium 3.1 mmol/L (3.4-5.0); Sodium 139 mmol/L (137-145); Total Protein 6.8 g/dL (6.3-8.2)
[2025-08-07 20:02] LABS: Influenza A QL RT-PCR Negative (Negative); Influenza B QL RT-PCR Negative (Negative); RSV RNA, RT-PCR Negative (Negative); SARS-CoV-2 RNA PCR Negative (Negative)
[2025-08-07 20:08] LABS: Thyroid Stimulating Hormone Reflex < 0.015 uIU/mL (0.465-4.68)
[2025-08-07] MEDS: POTASSIUM CHLORIDE 20 MEQ PACKET (FOR LIQUID) 40 MEQ PO (20:09)
[2025-08-07 20:51] LABS: Free T4 Free Thyroxine Reflex 2.89 ng/dL (0.78-2.19)
[2025-08-07] MEDS: KETOROLAC 15 MG/ML VIAL (*BKC) IV PUSH (21:01)
[2025-08-07 21:05] VITALS: BP 150/85; PULSE 70; RESP 16; O2SAT 98
== END 2025-08-07 21:07 | disposition home or self-care (01) ==
PROVIDERS: Emergency Provider Registered Nurse
DX: R51.9 Headache, unspecified (principal); E87.6 Hypokalemia; R94.6 Abnormal results of thyroid function studies; Z20.822 Contact with and (suspected) exposure to COVID-19
CPT/HCPCS: 36415; 70450; 80053; 84439; 84443; 85025; 87637; 96365; 96375; 99284; A9270; J1100; J1200; J1885; J2765; J3475; J7030